=== PATIENT | male | born 2000 | race African-American/Black ===

== ENCOUNTER 2023-04-27 21:20 | Emergency (ER) | payer MEDICAID ==
[~2023-04-27] VITALS: Ht 185.4 cm; Wt 82.0 kg
[2023-04-27 21:52] VITALS: TEMP 98.5; O2SAT 99
[2023-04-28 00:42] VITALS: BP 128/82; PULSE 84; RESP 14
[2023-04-28] MEDS ORDERED: IBUPROFEN 600MG TABLET PO NR (00:42)
[2023-04-28] MEDS ORDERED: NAPR-681 PO (00:51)
[2023-04-28] MEDS ORDERED: CYCL5TAB PO (00:51)
== END 2023-04-28 01:40 | disposition home or self-care (01) ==
LOC: ER 21:20
DX: R51.9 Headache, unspecified (principal); S16.1XXA Strain of muscle, fascia and tendon at neck level, initial encounter; V49.59XA Passenger injured in collision with other motor vehicles in traffic accident, initial encounter; Y93.89 Activity, other specified; Y92.89 Other specified places as the place of occurrence of the external cause; Y99.8 Other external cause status
CPT/HCPCS: 99284